=== PATIENT | male | born 1965 | race Caucasian/White ===

== ENCOUNTER 2024-10-03 18:26 | Emergency (ER) | payer SELFPAY ==
[2024-10-03 18:43] VITALS: BP 154/61; PULSE 58; RESP 17; TEMP 36.7; O2SAT 98; BMI 36.0
--- NOTE | 2024-10-03 19:07 | ED_ITS ---
<Statement entered by Sarjo Alba MD - 10/03/24 23:15> I was consulted by the MUNIR, and we discussed the complexity of the problems being addressed. I approved the treatment and management plan for this patient's care in the emergency department, thus performing a substantive portion of the medical decision making. Saroj Alba MD Discharge Plan Disposition Patient Disposition: Home, Self-Care Condition: Good Prescriptions Prescriptions: New cephalexin 500 mg capsule 500 mg PO BID 5 Days Qty: 10 0RF Referrals Follow up/Referrals: Provider,Referral, [Primary Care Provider] - See instructions Activity Restrictions/Add. Instructions Additional Instructions/Restrictions: As we discussed if you have any persistent new or worsening signs or symptoms return to the emergency department. Otherwise take antibiotics till its gone I recommend Benadryl for pain and itching along with Tylenol ibuprofen. Clinical Impressions Clinical Impression: Cellulitis Qualifiers: Site of cellulitis: extremity Site of cellulitis of extremity: upper extremity Laterality: right Qualified Code(s): L03.113 - Cellulitis of right upper limb Insect bite Qualifiers: Encounter type: initial encounter Site of insect bite: forearm Laterality: right Qualified Code(s): S50.861A - Insect bite (nonvenomous) of right forearm, initial encounter Instructions Patient Instructions: DI for Skin Abscess Print Language Print Language: E[place] Discharge ED Provider: Saroj Alba General Adult HPI General Chief complaint: Skin/Abscess/Foreign Body Stated complaint: Rt arm puffy and tingling poss bug bite Time Seen by Provider: 10/03/24 19:02 Mode of Arrival: Ambulatory Source of Information: Patient Description of Symptoms (Recalled from ER Triage Doc. by RN): pt to the ED with a swollen area to his righ forearm. pt was at work when he felt like a sharp pain and belived a bug or spider bit his arm but didnt see it. pt denies any fever or chills at this time History of Present Illness HPI narrative: Patient presents for evaluation of a bug bite to his right forearm. 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 Patient did not think anything about it however as the day is gone on he has had some numbness to the dorsum of his hand. He denies any loss of motor or sensory and remains neuro vastly intact. He denies any fever chest pain chills hemoptysis hematochezia melena nausea vomit diarrhea. Related Data Previous Rx's ?Medication ?Instructions ?Recorded cephalexin 500 mg capsule 500 mg PO BID 5 days #10 caps 10/03/24 Allergies Allergy/AdvReac Type Severity Reaction Status Date / Time No Known Allergies Allergy Verified 10/03/24 19:22 [facility] Disclaimer: The information contained in this section may have been updated after the patient was seen, as this information can be updated by other users. Social History Smoking Status: Never smoker alcohol intake: never current occupational status: employed Travel in the last 8 weeks?: Inside the [place] ROS Obtained: Yes Systems reviewed as appropriate & no additional complaints except as documented Physical Exam General General appearance: alert and in no apparent distress Respiratory Respiratory exam: Present normal lung sounds bilaterally Cardiovascular Cardiovascular exam: Present regular rate Abdominal Exam Abdominal exam: Present soft Neurological Exam Neurological exam: Present alert and oriented X3 Medical Decision Making Medical Records Medical records reviewed: Yes I reviewed the patient's medical records. Screening: Per USPSTF and CDC recommendations, given the prevalence of disease in our region, it is our hospital?s policy to screen for HIV and viral Hepatitis for all patients aged 18 and over and those with ongoing risk factors. [place] Inquiry Pt receiving controlled substance: No Vital Signs: 10/03/24 18:43 10/03/24 20:22 Temperature 98.1 F 97.9 F Temperature Source Oral Oral Pulse Rate 72 Pulse Rate [Left Radial] 58 L Respiratory Rate 17 16 Blood Pressure 122/74 Blood Pressure [Right Arm] 154/61 H Blood Pressure Mean [Right Arm] 92 Blood Pressure Source Automatic Cuff Blood Pressure Source [Right Arm] Automatic Cuff Blood Pressure Position Supine Blood Pressure Position [Right Arm] Sitting 02 Sat by Pulse Oximetry 98 Oxygen Delivery Method Room Air Room Air Orders (Tests/Meds): ED MEDICATIONS Discontinued Medications Generic Name Dose Route Start Last Admin Trade Name Freq PRN Reason Stop Dose Admin Cephalexin HCl 500 mg 10/03/24 19:20 10/03/24 19:59 Cephalexin 500mg Capsule PO 10/03/24 19:21 500 mg ONCE ONE Administration Diphenhydramine HCl 50 mg 10/03/24 19:21 10/03/24 19:59 Diphenhydramine 50mg Capsule PO 10/03/24 19:22 50 mg ONCE ONE Administration Tetanus/Reduced Diphtheria/Acell Pertussis 0.5 ml 10/03/24 20:13 10/03/24 20:15 Tet/Diphth/Pert-Adult 0.5ml Syringe IM 10/03/24 20:14 0.5 ml .ONCE ONE Administration Medical Decision Narrative: In summary patient is a 59-year-old male who presents to the emergency department for evaluation of bug bite and paresthesia of his right forearm. Patient is hemodynamically stable upon arrival, febrile. Physical exam is remarkable for approximately 3 cm area of erythema that is flat with a central area that looks to be a sting or bite. There is no induration. The borders were marked with a skin marker by myself. Patient has full range of motion of his hand is neurovascularly intact distally has no loss of motor or sensory but reports paresthesias of tingling. It is of all 4 digits of his hands. He has no elbow tenderness C-spine tenderness.. Differential diagnosis includes bug bite versus paresthesia. Initial workup was considered with labs and imaging however patient has no loss of motor or sensory no muscle weakness no focal neurologic deficits other than the presumed paresthesia. The bug bite is faint and the borders are marked there is no red flags of deeper or systemic infection no spreading lymphedema or lymphangitis. Given this I had a shared decision- making discussion with the patient regarding his symptoms presentation and management. I have recommended that he pursue watchful waiting with the borders marked. I have recommended Benadryl Keflex and updating his tetanus. If he has persistent new or worsening signs or symptoms patient can return to the ER or follow-up with his PCP as needed. I suggest that if the paresthesias persist he may need further workup with evaluation by a spine surgeon and/or neurologist as the 2 are likely unrelated. Patient verbalized understanding and agreement. Thus patient is appropriate for discharge with a prescription for Keflex and strict return precautions. Critical Care Critical Care Time Critical Care Time: No
[2024-10-03] MEDS: cephALEXin 500MG CAPSULE 500 MG PO (19:59)
[2024-10-03] MEDS: diphenhydrAMINE 50MG CAPSULE 50 MG PO (19:59)
[2024-10-03] MEDS: TET/DIPHTH/PERT-ADULT 0.5ML SYRINGE 0.5 ML IM (20:15)
[2024-10-03 20:22] VITALS: BP 122/74; PULSE 72; RESP 16; TEMP 36.6; O2SAT 98
== END 2024-10-03 20:23 | disposition home or self-care (01) ==
PROVIDERS: Emergency Provider Emergency Medicine
DX: L03.113 Cellulitis of right upper limb (principal); S50.861A Insect bite (nonvenomous) of right forearm, initial encounter; W57.XXXA Bitten or stung by nonvenomous insect and other nonvenomous arthropods, initial encounter; Z23 Encounter for immunization
CPT/HCPCS: 90471; 90715; 99283